=== PATIENT | female | born 1970 | race Caucasian/White ===

== ENCOUNTER 2022-07-26 09:33 | Emergency (ER) | payer MEDICAID ==
[~2022-07-26] VITALS: Ht 157.5 cm; Wt 83.9 kg
[~2022-07-26 09:33] MED LIST: AMOX-423 PO; IBUP-1969 PO; TRAM50TA2 PO
[2022-07-26 09:38] VITALS: BP_SYST 133
[2022-07-26 10:04] LABS: BASOPHILS % (AUTO) 0.7 % (0.0-2.0); EOSINOPHILS # (AUTO) 0.1 K/uL (0.0-0.4); EOSINOPHILS % (AUTO) 1.7 % (0.0-4.0); HEMATOCRIT 43.3 % (36-48); HEMOGLOBIN 14.5 g/dL (12.0-16.0); LYMPHOCYTES # (AUTO) 2.1 K/uL (1.0-5.5); LYMPHOCYTES % (AUTO) 31.3 % (20.5-51.5); MEAN CORPUSCULAR HEMOGLOBIN 29 pg (27-31); MEAN CORPUSCULAR HGB CONC 34 % (32-36); MEAN CORPUSCULAR VOLUME 86 fL (79.0-98.0); MONOCYTES # (AUTO) 0.5 K/uL (0.0-1.0); MONOCYTES % (AUTO) 8.2 % (1.7-9.3); NEUTROPHILS # (AUTO) 3.9 K/uL (1.8-7.7); NEUTROPHILS % (AUTO) 58.1 % (40.0-70.0); PLATELET COUNT (AUTO) 285 K/uL (130-430); RED BLOOD CELL COUNT(AUTO) 5.06 MIL/uL (4.2-6.2); RED CELL DISTRIBUTION WIDTH 13.5 % (9.0-15.0); WHITE BLOOD COUNT (AUTO) 6.6 K/uL (4.8-10.8)
[2022-07-26 10:22] LABS: ANION GAP 6 (5-15); CALCIUM 8.9 mg/dL (8.4-11.0); CHLORIDE 102 mmol/L (98-107); CREATININE 0.86 mg/dL (0.55-1.30); GFR AFRICAN AMERICAN 89 mL/min (>90); GLUCOSE 101 mg/dL (70-99); UREA NITROGEN, BLOOD 18 mg/dL (8-21)
[2022-07-26 10:29] LABS: ALANINE AMINOTRANSFERASE 41 U/L (12-78); ALBUMIN 3.7 g/dL (3.4-4.8); ASPARTATE AMINOTRANSFERASE 35 U/L (10-37); TOTAL BILIRUBIN 0.3 mg/dL (0.0-1.0)
[2022-07-26] MEDS ORDERED: ONDA-8 TL (11:42)
[2022-07-26] MEDS ORDERED: ONDANSETRON 4 MG ODT TAB PO ONE (11:45)
[2022-07-26 12:23] VITALS: BP_SYST 132
== END 2022-07-26 12:01 | disposition home or self-care (01) ==
LOC: SED 09:33
DX: R53.1 Weakness (principal); F41.9 Anxiety disorder, unspecified; R07.9 Chest pain, unspecified; R06.00 Dyspnea, unspecified; R20.2 Paresthesia of skin; Z79.899 Other long term (current) drug therapy
CPT/HCPCS: 36415; 71045; 80053; 83880; 84484; 85025; 85379; 93005; 99285

== ENCOUNTER 2022-08-30 16:24 | Emergency (ER) | payer MEDICAID ==
[~2022-08-30] VITALS: Ht 160 cm; Wt 79.4 kg
[~2022-08-30 16:24] MED LIST changes: +ONDA-8 TL
[2022-08-30 17:22] VITALS: BP_SYST 128; PULSE 100; RESP 18; TEMP 97.3; O2SAT 98
--- NOTE | 2022-08-30 17:51 | NUR ---
Pt bib self from home chief complaint right hand wrist pain and swelling. 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 skin intact tender to touch.
[2022-08-30 17:55] VITALS: BP_SYST 128; PULSE 100; RESP 18; TEMP 97.3; O2SAT 98
[2022-08-30] MEDS ORDERED: KETOROLAC TROMETHAMINE 30 MG VIAL IM ONE (18:30)
--- NOTE | 2022-08-30 19:09 | NUR ---
REPORT GIVEN TO BROOKE SNIDER
--- NOTE | 2022-08-30 19:45 | NUR ---
UNABLE TO LOCATE PT FOR ULTRASOUND. CHECKED LOBBY AND OUTSIDE. MD AND CHARGE NOTIFIED.
--- NOTE | 2022-08-30 20:14 | NUR ---
unable to locate pt. Pt elopement prior to treatment complication. md and charge notifed. central services tech notifed as well.
--- NOTE | 2022-08-30 20:17 | NUR ---
Patient left without finishing treatment.
== END 2022-08-30 21:07 | disposition left against medical advice (07) ==
LOC: SED 16:24
DX: R22.31 Localized swelling, mass and lump, right upper limb (principal); M25.531 Pain in right wrist; Z79.899 Other long term (current) drug therapy
CPT/HCPCS: 99283; 73110; 96372; J1885